=== PATIENT | female | born 1970 | race African-American/Black ===

== ENCOUNTER → 2020-01-25 | Outpatient (CLI) | payer MEDICAID ==
[~2020-01-25] VITALS: Ht 167.6 cm; Wt 72.6 kg
[~2020-01-25] MED LIST: ADENOSINE 61 MG in GIVE UN-DILUTED 0 ML IV ONE; ADENOSINE 90 MG/30 ML INJ IV ONE
== END | disposition home or self-care (01) ==
LOC: Rad HDHVI 13:00
PROVIDERS: ATTEND Internal Medicine Cardiovascular Disease
DX: Z01.810 Encounter for preprocedural cardiovascular examination (principal); F17.210 Nicotine dependence, cigarettes, uncomplicated
CPT/HCPCS: 78452; 93005; 96374; 96375; A9500; J0153

== ENCOUNTER → 2020-02-12 | Outpatient (CLI) | payer MEDICAID | END | disposition home or self-care (01) | LOC: Rad HDHVI 12:13 | PROVIDERS: ATTEND Internal Medicine Cardiovascular Disease | DX: I07.1 Rheumatic tricuspid insufficiency (principal); R00.2 Palpitations | CPT/HCPCS: 93306 ==